=== PATIENT | female | born 2000 | race Caucasian/White ===

== ENCOUNTER 2024-10-08 08:06 | Emergency (ER) | payer BC ==
[~2024-10-08] VITALS: Ht 154.9 cm; Wt 49.9 kg
[2024-10-08] MEDS: IV NS 0.9% 1,000 ML BAG IV ONE (08:37)
[2024-10-08 08:43] LABS: PLATELET COUNT (AUTO) 296 K/uL (150-450); RED BLOOD CELL COUNT(AUTO) 4.45 MIL/uL (4.0-5.2); RED CELL DISTRIBUTION WIDTH 11.9 % (11.5-15.0); WHITE BLOOD COUNT (AUTO) 6.3 K/uL (4.3-11.0)
[2024-10-08] MEDS ORDERED: MECLIZINE HCL 25 MG TABLET ONE (08:46)
[2024-10-08] MEDS: MECLIZINE HCL 25 MG TABLET PO ONE (08:50)
[2024-10-08 08:54] LABS: CALCIUM, SERUM 9.6 mg/dL (8.5-10.1); CREATININE 1.1 mg/dL (0.6-1.3); SODIUM SERUM 137.0 mmol/L (136-145); UREA NITROGEN, BLOOD 10.0 mg/dL (7-18)
[2024-10-08] MEDS ORDERED: MECL-159 PO (09:17)
[2024-10-08 09:49] VITALS: BP 110/80; TEMP 98.6; O2SAT 96
== END 2024-10-08 09:50 | disposition home or self-care (01) ==
LOC: ER 08:17
DX: H81.399 Other peripheral vertigo, unspecified ear (principal); E86.0 Dehydration; F41.0 Panic disorder [episodic paroxysmal anxiety]; R10.2 Pelvic and perineal pain
CPT/HCPCS: 99283; 96360; 85025; 80048; 36415; 84702; J8597; J7030; A4223